=== PATIENT | male | born 1950 | race Caucasian/White ===

== ENCOUNTER 2017-05-09 10:48 | Inpatient (IN) | payer OTHER ==
--- NOTE | 2017-05-09 11:10 | ED ---
General Adult HPI - General Chief complaint: Neuro Symptoms/Deficit Stated complaint: Poss Stroke Time Seen by Provider: 05/09/17 10:58 Source: patient, family, RN notes reviewed Mode of arrival: wheelchair Limitations: no limitations - History of Present Illness Initial comments: Patient is a pleasant 66-year-old male presenting to the emergency department with concern for stroke. Majority of history is taken from the . Patient was fine when he went to bed last night. Patient woke up this morning with slurred speech and confusion. Patient did not check his blood sugar yet today as they do not have the equipment. Patient did not know his address. Symptoms have mostly persistent. Patient states he does feel fine and has no complaints. No headache. No weakness. No history of similar symptoms previously. - Related Data Home Medications Medication Instructions Recorded Confirmed Insulin Aspart [NovoLOG] 15 unit SQ AC-TID 05/09/17 05/09/17 Insulin Glargine,Hum.rec.anlog 30 unit SQ HS 05/09/17 05/09/17 [Lantus Solostar] Lisinopril 40 mg PO DAILY 05/09/17 05/09/17 Omeprazole [PriLOSEC] 20 mg PO DAILY 05/09/17 05/09/17 Allergies Allergy/AdvReac Type Severity Reaction Status Date / Time No Known Allergies Allergy Verified 05/09/17 11:38 Review of Systems ROS Statement: Those systems with pertinent positive or pertinent negative responses have been documented in the HPI. ROS Other: All systems not noted in ROS Statement are negative. Constitutional: Denies: fever Eyes: Denies: eye pain ENT: Denies: ear pain Respiratory: Denies: cough Cardiovascular: Denies: chest pain Endocrine: Denies: fatigue Gastrointestinal: Denies: abdominal pain Genitourinary: Denies: urgency Musculoskeletal: Denies: back pain Skin: Denies: rash Neurological: Reports: confusion. Denies: headache, weakness Past Medical History Past Medical History: Diabetes Mellitus, GERD/Reflux, Hyperlipidemia, Hypertension History of Any Multi-Drug Resistant Organisms: None Reported Past Surgical History: No Surgical Hx Reported Past Psychological History: No Psychological Hx Reported Smoking Status: Current every day smoker Past Alcohol Use History: None Reported Past Drug Use History: None Reported General Exam Limitations: no limitations General appearance: alert, in no apparent distress Head exam: Present: atraumatic, normocephalic Eye exam: Present: normal appearance, PERRL, EOMI. Absent: nystagmus ENT exam: Present: normal oropharynx Neck exam: Present: normal inspection Respiratory exam: Present: normal lung sounds bilaterally Cardiovascular Exam: Present: regular rate, normal rhythm GI/Abdominal exam: Present: soft. Absent: tenderness Extremities exam: Present: normal inspection Neurological exam: Present: alert, CN II-XII intact. Absent: motor sensory deficit Expanded Neurological exam: Present: protecting the airway, other (Mild slurred speech) Patient oriented to: Present: person, time. Absent: place Cranial nerves: EOM's Intact: Normal, Facial Sensation: Normal Cerebellar function: Finger to Nose: Normal Sensory exam: Upper Extremity Light Touch: Normal, Lower Extremity Light Touch: Normal Motor strength exam: RUE: 5, LUE: 5, RLE: 5, LLE: 5 Eye Response: (4) open spontaneously Motor Response: (6) obeys commands Verbal Response: (5) oriented Psychiatric exam: Present: normal affect, normal mood Skin exam: Present: normal color Course Vital Signs 05/09/17 05/09/17 05/09/17 10:54 12:07 13:02 Temperature 97.8 F 98.5 F Pulse Rate 69 72 79 Respiratory 20 18 18 Rate Blood Pressure 159/74 143/84 147/71 O2 Sat by Pulse 96 96 97 Oximetry 05/09/17 13:24 Temperature 16 F L Pulse Rate 63 Respiratory 16 Rate Blood Pressure 125/75 O2 Sat by Pulse 96 Oximetry EKG Findings - EKG Comments: EKG Findings:: Sinus rhythm at 69. AL 150. QRS 92. QT 428. QTC 453. Left axis. Normal QRS. Normal ST-T. Medical Decision Making - Medical Decision Making Patient reevaluated. Patient and family updated on results and plan. Ammonia level be added. Patient will need to be evaluated for possible portal vein thrombosis and possible anticoagulation. Patient will also need to be seen by neurology. Case discussed with practitioner Cris, who will admit for Dr. jackson, covering for hospital call. - Lab Data Result diagrams: 05/09/17 11:25 05/09/17 11:25 Lab Results 05/09/17 05/09/17 05/09/17 Range/Units 11:09 11:25 11:25 WBC 2.9 L (3.8-10.6) k/uL RBC 4.05 L (4.30-5.90) m/uL Hgb 12.7 L (13.0-17.5) gm/dL Hct 35.8 L (39.0-53.0) % MCV 88.4 (80.0-100.0) fL MCH 31.3 (25.0-35.0) pg MCHC 35.4 (31.0-37.0) g/dL RDW 14.9 (11.5-15.5) % Plt Count 42 L* (150-450) k/uL Neutrophils % 74 % Lymphocytes % 11 % Monocytes % 7 % Eosinophils % 4 % Basophils % 0 % Neutrophils # 2.2 (1.3-7.7) k/uL Lymphocytes # 0.3 L (1.0-4.8) k/uL Monocytes # 0.2 (0-1.0) k/uL Eosinophils # 0.1 (0-0.7) k/uL Basophils # 0.0 (0-0.2) k/uL Poikilocytosis (manual Present Anisocytosis (manual) Present PT (9.0-12.0) sec INR (<1.1) APTT (22.0-30.0) sec Sodium (137-145) mmol/L Potassium (3.5-5.1) mmol/L Chloride (98-107) mmol/L Carbon Dioxide (22-30) mmol/L Anion Gap mmol/L BUN (9-20) mg/dL Creatinine (0.66-1.25) mg/dL Est GFR (MDRD) Af Amer (>60 ml/min/1.73 sqM) Est GFR (MDRD) Non-Af (>60 ml/min/1.73 sqM) Glucose (74-99) mg/dL POC Glucose (mg/dL) 141 H (75-99) mg/dL POC Glu Precise Winder ID McDaid, Princess Calcium (8.4-10.2) mg/dL Total Bilirubin (0.2-1.3) mg/dL AST (17-59) U/L ALT (21-72) U/L Alkaline Phosphatase (38-126) U/L Total Creatine Kinase 108 (55-170) U/L CK-MB (CK-2) 1.5 (0.0-2.4) ng/mL CK-MB (CK-2) Rel Index 1.4 Troponin I <0.012 (0.000-0.034) ng/mL Total Protein (6.3-8.2) g/dL Albumin (3.5-5.0) g/dL 05/09/17 05/09/17 Range/Units 11:25 11:25 WBC (3.8-10.6) k/uL RBC (4.30-5.90) m/uL Hgb (13.0-17.5) gm/dL Hct (39.0-53.0) % MCV (80.0-100.0) fL MCH (25.0-35.0) pg MCHC (31.0-37.0) g/dL RDW (11.5-15.5) % Plt Count (150-450) k/uL Neutrophils % % Lymphocytes % % Monocytes % % Eosinophils % % Basophils % % Neutrophils # (1.3-7.7) k/uL Lymphocytes # (1.0-4.8) k/uL Monocytes # (0-1.0) k/uL Eosinophils # (0-0.7) k/uL Basophils # (0-0.2) k/uL Poikilocytosis (manual Anisocytosis (manual) PT 12.5 H (9.0-12.0) sec INR 1.3 (<1.1) APTT 25.0 (22.0-30.0) sec Sodium 141 (137-145) mmol/L Potassium 4.2 (3.5-5.1) mmol/L Chloride 110 H (98-107) mmol/L Carbon Dioxide 21 L (22-30) mmol/L Anion Gap 10 mmol/L BUN 15 (9-20) mg/dL Creatinine 0.68 (0.66-1.25) mg/dL Est GFR (MDRD) Af Amer >60 (>60 ml/min/1.73 sqM) Est GFR (MDRD) Non-Af >60 (>60 ml/min/1.73 sqM) Glucose 136 H (74-99) mg/dL POC Glucose (mg/dL) (75-99) mg/dL POC Glu Precise Winder ID Calcium 9.2 (8.4-10.2) mg/dL Total Bilirubin 1.7 H (0.2-1.3) mg/dL AST 37 (17-59) U/L ALT 38 (21-72) U/L Alkaline Phosphatase 69 (38-126) U/L Total Creatine Kinase (55-170) U/L CK-MB (CK-2) (0.0-2.4) ng/mL CK-MB (CK-2) Rel Index Troponin I (0.000-0.034) ng/mL Total Protein 7.1 (6.3-8.2) g/dL Albumin 4.0 (3.5-5.0) g/dL - Radiology Data Radiology results: report reviewed (Computed tomography scan of the thoracic and abdominal aorta shows cirrhosis and portal hypertension, possible portal vein thrombosis. Indeterminate liver lesions. Computed tomography scan of the brain shows atrophy and white matter changes.), image reviewed (Two-view chest x -ray shows hilar and suprahilar and retrocardiac prominences. CT recommended.) Disposition Clinical Impression: Transient cerebral ischemia, Portal vein thrombosis Disposition: ADMITTED IP TO THIS HOSP Referrals: Nonstaff,Physician [Primary Care Provider] - 1-2 days Decision Time: 14:14
[2017-05-09 11:12] LABS: Glucose,Whole Blood 141 mg/dL (75-99)
[2017-05-09] MEDS ORDERED: SODIUM CHLORIDE 0.9% 1,000 ML IV STA (11:14)
[2017-05-09 11:52] LABS: ALT 38 U/L (21-72); AST 37 U/L (17-59); Alkaline Phosphatase 69 U/L (38-126); Anion Gap 10 mmol/L; Blood Urea Nitrogen 15 mg/dL (9-20); Calcium 9.2 mg/dL (8.4-10.2); Carbon Dioxide 21 mmol/L (22-30); Chloride 110 mmol/L (98-107); Glucose 136 mg/dL (74-99); Non-African American GFR(MDRD) >60 (>60 ml/min/1.73 sqM); Potassium 4.2 mmol/L (3.5-5.1); Sodium 141 mmol/L (137-145); Total Bilirubin 1.7 mg/dL (0.2-1.3); Total Protein 7.1 g/dL (6.3-8.2)
--- NOTE | 2017-05-09 11:52 | XR ---
EXAMINATION TYPE: XR chest 2V DATE OF EXAM: 05/09/2017 COMPARISON: NONE TECHNIQUE: PA and lateral views submitted. HISTORY: Altered mental status FINDINGS: The lungs are clear and there is no pneumothorax, pleural effusion, or focal pneumonia. There is li mited assessment of the lateral view due to motion artifact. Degenerative changes spine seen. There is prominence of the right suprahilar region and along the left cardiac silhouette. Could relat e to aortic aneurysm, mass or ventricular aneurysm. Case discussed with ER physician CT chest recomme nded. IMPRESSION: 1. Hilar and suprahilar and retrocardiac prominence as discussed above. Differential diagnosis would include aortic or ventricular aneurysm. Mass not excluded CT chest recommended.
[2017-05-09 11:59] LABS: Basophils % (A) 0 %; CH 31.3; CHCM 35.6; Eosinophils # (A) 0.1 k/uL (0-0.7); Eosinophils % (A) 4 %; HCT 35.8 % (39.0-53.0); HDW 3.19; HGB 12.7 gm/dL (13.0-17.5); Luc # (Auto) 0.13; Luc % (Auto) 5; Lymphocytes # (A) 0.3 k/uL (1.0-4.8); Lymphocytes % (A) 11 %; MCH 31.3 pg (25.0-35.0); MCHC 35.4 g/dL (31.0-37.0); MCV 88.4 fL (80.0-100.0); Mean Platelet Volume 9.5; Monocytes # (A) 0.2 k/uL (0-1.0); Monocytes % (A) 7 %; Neutrophils # (A) 2.2 k/uL (1.3-7.7); Neutrophils % (A) 74 %; RBC 4.05 m/uL (4.30-5.90); RDW 14.9 % (11.5-15.5); WBC 2.9 k/uL (3.8-10.6); WBC (Perox) 2.99
--- NOTE | 2017-05-09 12:02 | CT ---
EXAMINATION TYPE: CT brain wo con DATE OF EXAM: 05/09/2017 COMPARISON: NONE INDICATION: Patient complains of feeling "woozy." Neurological deficits. DLP: 809.2 mGycm, Automated exposure control for dose reduction was used. CONTRAST: None CT of the brain is performed utilizing 3 mm thick sections through the posterior fossa and 3 mm thick sections through the remaining calvarium. Study is performed within 24 hours of arrival to the hosp ital. No abnormal hyperdensity is present to suggest an acute intracranial hemorrhage. No mass lesion is evident. No acute infarcts are evident. Some mild periventricular white matter hypodensity is present, likely on the basis of chronic white matter ischemic changes. Ventricles and sulci are appropriate for the patient age. There is mild prominence of the extra-axia l space greater at the frontal region which can be related to some atrophy Paranasal sinuses and mastoid air cells within the [id number] are clear. IMPRESSIONS: 1. Mild atrophy with some mild periventricular white matter ischemic changes.
[2017-05-09 12:10] LABS: Creatine Kinase 108 U/L (55-170)
[2017-05-09 12:11] LABS: INR 1.3 (<1.1); Prothrombin Time 12.5 sec (9.0-12.0)
[2017-05-09] MEDS ORDERED: RX INFO: IV CONTRAST WAS GIVEN 1 EACH MISC MISCELLANE PRN (12:11)
[2017-05-09 12:23] LABS: Creatine Kinase MB 1.5 ng/mL (0.0-2.4); Troponin I <0.012 ng/mL (0.000-0.034)
--- NOTE | 2017-05-09 13:45 | CT ---
CT angiogram of the thoracic and abdominal aorta HISTORY: Pain Helical acquisition obtained through the aorta are dynamic administration of 100 cc Omni 350 IV. Thre e-dimensional reconstructions performed on an alternate workstation. Exam was performed both pre and post intravenous contrast administration. The aorta shows normal caliber, there is no evident aneurysm or dissection. The superior aortic branc h vessels, superior mesenteric artery, celiac axis, inferior mesenteric artery, renal arteries, commo n iliac, internal and external iliac arteries, common femoral, proximal deep and superficial femoral arteries are patent. There is a large hiatal hernia, small bowel loops thought to be present within the chest, this could be confirmed with oral contrast administration. Coronary artery calcifications are present. Low dense foci are scattered within the liver are present within the dome measuring approximately 3.4 and 2.1 cm respectively. The liver appears somewhat nodular. The spleen is enlarged. There is low density present of the super ior mesenteric vein especially at the splenoportal confluence suggesting portal vein thrombosis. Smal l bowel loops and cecum show probable wall thickening. Some associated inflammatory changes are suspe cted within the mesenteric fat. There is minimal ascites. Dependent high attenuation within the gallb ladder compatible with stones. There is gastric wall thickening. Anterior abdominal wall hernia is noted at the umbilical location, there is associated varices. Right inguinal hernia also contains small bowel loops, no definite bowel obstruction. No evident adenopath y. Urinary bladder shows thickened wall, there may be chronic bladder outlet obstruction, prostate sh ows associated calcifications. IMPRESSION: Findings suggest cirrhosis and portal hypertension, possible portal vein thrombosis. Inde terminate liver lesions. Possible hiatal hernia containing small bowel loops as described. Coronary a rtery disease. No evident abdominal aortic aneurysm or dissection. Additional hernias. Cholelithiasis . Small and large bowel wall thickening may be due to portal vein thrombosis. Case discussed with Dr. Gonzalez at time of interpretation.
--- NOTE | 2017-05-09 15:39 | US ---
EXAMINATION TYPE: US carotid duplex BILAT DATE OF EXAM: 05/09/2017 COMPARISON: NONE CLINICAL HISTORY: Stenosis. Dizziness, exam done portable in ER EXAM MEASUREMENTS: RIGHT: Peak Systolic Velocity (PSV) cm/sec ----- Right CCA: 77.6 ----- Right ICA: 74.0 ----- Right ECA: 143.5 ICA/CCA ratio: 1.0 RIGHT: End Diastole cm/sec ----- Right CCA: 17.1 ----- Right ICA: 27.0 ----- Right ECA: 17.8 LEFT: Peak Systolic Velocity (PSV) cm/sec ----- Left CCA: 96.2 ----- Left ICA: 63.7 ----- Left ECA: 69.9 ICA/CCA ratio: 0.7 LEFT: End Diastole cm/sec ----- Left CCA: 19.6 ----- Left ICA: 21.5 ----- Left ECA: 9.0 VERTEBRALS (direction of flow): Right Vertebral: Antegrade Left Vertebral: Antegrade Bilateral intimal thickening, minimal plaque bilateral bulb, elevated velocity: right mid ECA, no sig nificant stenosis IMPRESSION: 1. Intimal thickening and mild plaque bilaterally with no significant hemodynamic stenosis.
[2017-05-09] MEDS: SODIUM CHLORIDE 0.9% 1,000 ML IV SCH ×2 (17:10→21:57)
[2017-05-09 21:09] LABS: Glucose,Whole Blood 151 mg/dL (75-99)
[2017-05-09] MEDS: INSULIN GLARGINE 100 UNIT/ML 10 ML VIAL SQ SCH (21:30)
--- NOTE | 2017-05-09 23:07 | CONS ---
DATE OF CONSULTATION: 05/09/2017 CHIEF COMPLAINT: Altered mental status. HISTORY OF PRESENT ILLNESS: Mr. Fowler is a pleasant 66-year-old male who is being evaluated by the neurology service per the request of Dr. Nowak for altered mental status. The patient was brought into [facility] emergency room after his noticed that he was somewhat confused and quite drowsy. She also noticed some slurred speech. In the emergency room, a CT scan of the brain was done, which showed no acute intracranial abnormalities. He did have generalized atrophy and small vessel ischemic changes. His carotid Doppler showed no hemodynamically significant stenosis. A chest x-ray was done, which showed abnormal calcification and a CT scan of the chest was recommended. A CT scan of the chest was done, which showed evidence of portal vein thrombosis. The patient does have history of liver cirrhosis with a previous history of alcohol abuse. His serum ammonia level was elevated at 71. His CBC showed leukopenia at 2.9 and thrombocytopenia at 42,000. His comprehensive metabolic profile and cardiac enzymes were normal. At the time of my evaluation, the patient is lying in his bed and appears to be in no acute distress. His is at bedside and she reports moderate improvement in his speech and mild improvement in his mental status. The patient denies any lateralizing numbness or weakness. PAST MEDICAL HISTORY: Diabetes, gastroesophageal reflux disease, dyslipidemia, hypertension, history of hepatic cirrhosis. SOCIAL HISTORY: The patient is a current every day smoker. He does have history of alcohol abuse in the past. He denies any drug use. FAMILY HISTORY: Noncontributory. HOME MEDICATIONS: Reviewed in the chart. ALLERGIES: No known drug allergies. REVIEW OF SYSTEMS: CONSTITUTIONAL: Negative. EYES: Negative. ENT: Negative. CARDIOVASCULAR: Negative. RESPIRATORY: Negative. GASTROINTESTINAL: As mentioned above. NEUROLOGICAL: As mentioned above. GENITOURINARY: Negative. PSYCHIATRIC: Negative. Dermatological: Negative. MUSCULOSKELETAL: Negative. PHYSICAL EXAM: Vital signs show a temperature of 97.1, pulse 64, respirations 18, blood pressure 139/80. GENERAL APPEARANCE: The patient is a well-developed male who appears to be in no acute distress. HEENT: Normocephalic, atraumatic, no facial asymmetry is seen. Extraocular muscles are intact. Neck is supple with no masses felt. CARDIOVASCULAR: Regular rate and rhythm. ABDOMEN: Nontender, nondistended. EXTREMITIES: No edema or clubbing. NEUROLOGICAL EXAM: The patient is awake, and oriented x3. Speech and language are normal. Strength is full in all 4 extremities. Sensory exam was normal to light touch in all 4 extremities. No facial asymmetry is noticed on cranial nerve testing. IMPRESSION: 1. Altered mental status. 2. Acute metabolic encephalopathy. 3. Elevated ammonia level. 4. Dysarthria. 5. Thrombocytopenia. 6. Possible portal vein thrombosis. RECOMMENDATIONS: The patient's mental status change and dysarthria are likely due to his elevated ammonia level. This likely caused an acute metabolic encephalopathy causing him to be drowsy and confused and dysarthric. His symptoms are slowly improving. His CT scan of the thorax shows evidence of portal vein thrombosis. Gastroenterology has been consulted. From a neurology standpoint, an EEG will be ordered. I do recommend close monitoring of his platelet count as he does have significant thrombocytopenia. Continue neuro checks. I did review his CT scan of the brain, which showed no acute abnormalities and he was reassured from that standpoint. I doubt any ischemic stroke etiology at this time. I will continue to follow with you. Further recommendations to follow. Thank you for allowing me to participate in the care of your patient. If you have any questions, please feel free to contact me.
[2017-05-10 06:07] LABS: Glucose,Whole Blood 117 mg/dL (75-99)
[2017-05-10 06:52] LABS: Anion Gap 7 mmol/L; Blood Urea Nitrogen 14 mg/dL (9-20); Calcium 8.7 mg/dL (8.4-10.2); Carbon Dioxide 21 mmol/L (22-30); Chloride 111 mmol/L (98-107); Cholesterol 168 mg/dL (<200); Glucose 107 mg/dL (74-99); HDL Cholesterol 47 mg/dL (40-60); Non-African American GFR(MDRD) >60 (>60 ml/min/1.73 sqM); Potassium 3.8 mmol/L (3.5-5.1); Sodium 139 mmol/L (137-145); Triglycerides 174 mg/dL (<150)
[2017-05-10 07:11] LABS: Basophils % (A) 0 %; CH 30.8; Eosinophils # (A) 0.1 k/uL (0-0.7); Eosinophils % (A) 5 %; HCT 34.4 % (39.0-53.0); HDW 3.08; HGB 11.6 gm/dL (13.0-17.5); Luc # (Auto) 0.11; Luc % (Auto) 5; Lymphocytes # (A) 0.4 k/uL (1.0-4.8); Lymphocytes % (A) 15 %; MCH 30.6 pg (25.0-35.0); MCHC 33.7 g/dL (31.0-37.0); MCV 90.9 fL (80.0-100.0); Mean Platelet Volume 8.1; Monocytes # (A) 0.2 k/uL (0-1.0); Monocytes % (A) 8 %; Neutrophils # (A) 1.6 k/uL (1.3-7.7); Neutrophils % (A) 67 %; RBC 3.78 m/uL (4.30-5.90); RDW 14.8 % (11.5-15.5); WBC 2.4 k/uL (3.8-10.6); WBC (Perox) 2.64
--- NOTE | 2017-05-10 07:45 | HP ---
DATE OF ADMISSION: 05/09/2017 PRESENTING COMPLAINT: Acute confusion. HISTORY OF PRESENTING COMPLAINT: This is a 66-year-old patient who was visiting here with his . Chronic stable medical conditions include diabetes, GERD, hyperlipidemia, hypertension. Patient also got known esophageal varices. Stopped drinking excessive alcohol in 2006. This morning patient got up, he was somewhat confused, acting weird, slow to walk, slightly slurred speech, just not himself. CT scan in the ER did not show any stroke. Initial impression that patient may have had ( ). The patient denies any weakness on a particular side. No numbness. Per the , the patient is looking better right now. REVIEW OF SYSTEMS: CONSTITUTIONAL: Tired. HEENT: None. RESPIRATORY: None. CARDIOVASCULAR: None. GASTROINTESTINAL: Heartburn. GENITOURINARY: None. MUSCULOSKELETAL: None. DERMATOLOGICAL: None. HEMATOLOGICAL: None. LYMPHATIC: None. PSYCHIATRY: None. NEUROLOGICAL: As above. PAST HISTORY: Diabetes, GERD, hyperlipidemia, hypertension, esophageal varices, alcoholism. PAST SURGICAL HISTORY: Procedure of esophageal varices. SOCIAL HISTORY: The patient works at [employer]. Stopped drinking excessive alcohol in 2006. Did smoke cigars in the past. . FAMILY HISTORY: Stroke, hypertension, myocardial infarction. HOME MEDICATIONS: 1. NovoLog 15 units a.c. t.i.d. 2. Prilosec 20 mg p.o. daily. 3. Lisinopril 40 mg p.o. daily. 4. Lantus 30 units subcu q.h.s. ALLERGIES: None. ON EXAMINATION: VITAL SIGNS ON PRESENTATION: Temperature 97.8, pulse 69, respiration 20, blood pressure 159/74, pulse ox 96% on room air. GENERAL APPEARANCE: Well built, BMI of 33.5, sitting up, not in distress. EYES: Pupils equal. Conjunctivae normal. HEENT: External appearance of nose and ears normal. Oral cavity normal. NECK: JVD not raised. Mass not palpable. RESPIRATORY: Effort normal. Lungs are clear. CARDIOVASCULAR: First and second sounds normal. Minimal edema. ABDOMEN: Soft, nontender. Liver and spleen not palpable. LYMPHATIC: No lymph node palpable in neck or axillae. PSYCHIATRY: Patient is answering questions. No ( ). Minimal tremors if any. INVESTIGATIONS: White count 2.9, hemoglobin 12.7, platelets 42. Potassium 4.2, BUN and creatinine are normal, Accu-Cheks are noted. Troponin less than 0.012. Serum alcohol less than 10. Serum ammonia 71. Patient's CT angio, thoracic abdominal aorta showing cirrhosis, portal hypertension, possible portal vein thrombosis, indeterminate liver lesions, possible hiatal hernia. No evidence of dissection; cholelithiasis. CT scan of the brain unremarkable. ASSESSMENT: 1. This is a patient with acute confusion, slurring of speech. This may well be a hepatic encephalopathy. At the same time, transient ischemic attack cannot be ruled out. Patient has multiple risk factors. 2. Alcoholic cirrhosis with portal hypertension with possible portal vein thrombosis. 3. Diabetes mellitus type 2, chronically on insulin. 4. Gastroesophageal reflux disease. 5. Hyperlipidemia. 6. Essential hypertension. 7. Esophageal varices. PLAN: Home medications are resumed. Both GI and Neurology were consulted. I am reluctant to give any aspirin given history esophageal varices. Patient will also be put on lactulose to titrate to have 2 or 3 bowel movements a day. Because of low platelet count, Lovenox will be given. Care was discussed with the patient and at the bedside. The patient will be closely monitored. Neuro checks. Like I said aspirin will be held.
[2017-05-10 08:57] LABS: Hepatitis B Surface Ag Index 0.06
[2017-05-10] MEDS ORDERED: LACTULOSE 20 GM/30 ML CUP PO SCH (09:00)
[2017-05-10] MEDS ORDERED: ENOXAPARIN 40 MG/0.4 ML SYRINGE SQ SCH (09:00)
[2017-05-10 09:02] LABS: Hepatitis B Core IgM Index 0.01
[2017-05-10 09:14] LABS: Hepatitis C Virus IgG Ab Negative (Negative); Hepatitis C Virus IgG Index 0.05
[2017-05-10] MEDS ORDERED: RX INFO: IV CONTRAST WAS GIVEN 1 EACH MISC MISCELLANE PRN (09:57)
[2017-05-10 10:09] LABS: Reticulocyte % 2.7 % (0.5-2.0)
[2017-05-10] MEDS: INSULIN LISPRO (humaLOG) 300 UNIT/3 ML VIAL SQ SCH ×3 (10:24→17:51)
--- NOTE | 2017-05-10 10:51 | ECHOF ---
Referral Reason:Thrombus MEASUREMENTS -------- HEIGHT: 180.3 cm WEIGHT: 108.9 kg BP: 125/75 RVIDd: 2.8 cm (< 3.3) IVSd: 1.3 cm (0.6 - 1.1) LVIDd: 5.5 cm (3.9 - 5.3) LVPWd: 1.3 cm (0.6 - 1.1) IVSs: 2.1 cm LVIDs: 2.9 cm LVPWs: 2.1 cm LAESV Index (A-L): 27.56 ml/m Ao Diam: 3.2 cm (2.0 - 3.7) AV Cusp: 2.2 cm (1.5 - 2.6) LA Diam: 3.0 cm (2.7 - 3.8) MV EXCURSION: 19.436 mm (> 18.000) MV EF SLOPE: 72 mm/s (70 - 150) EPSS: 0.8 cm MV E Fer: 1.01 m/s MV DecT: 371 ms MV A Fer: 1.20 m/s MV E/A Ratio: 0.85 AR PHT: 1375 ms RAP: 5.00 mmHg RVSP: 25.24 mmHg FINDINGS -------- Sinus rhythm. This was a technically adequate study. There is mild concentric left ventricular hypertrophy. Overall left ventricular systolic function is normal with, an EF between 60 - 65 %. The right ventricle is normal in size and function. Normal LA size by volume 22+/-6 ml/m2. The right atrium is normal in size. Aortic valve is trileaflet and is mildly thickened. Trace amount of aortic regurgitation. The aortic pressure half-time by doppler is 1375ms. There is no evidence of aortic stenosis. The mitral valve leaflets are mildly thickened. Mild mitral annular calcification present. There is trace to mild mitral regurgitation. Trace tricuspid regurgitation present. There is no evidence of pulmonary hypertension. The right ventricular systolic pressure, as measured by Doppler, is 25.24mmHg. Trace/mild (physiologic) pulmonic regurgitation. The aortic root size is normal. Normal inferior vena cava with normal inspiratory collapse consistent with estimated right atrial pressure of 5 mmHg. The pericardium is normal. There is no pericardial effusion. Small Pleural Effusion. CONCLUSIONS -------- 1. Sinus rhythm. 2. Mild mitral annular calcification present. 3. There is trace to mild mitral regurgitation. 4. Trace tricuspid regurgitation present. 5. There is no evidence of pulmonary hypertension. 6. The right ventricular systolic pressure, as measured by Doppler, is 25.24mmHg. 7. Trace/mild (physiologic) pulmonic regurgitation. 8. The aortic root size is normal. 9. There is no pericardial effusion. 10. Small Pleural Effusion. 11. There is mild concentric left ventricular hypertrophy. 12. Overall left ventricular systolic function is normal with, an EF between 60 - 65 %. 13. Normal LA size by volume 22+/-6 ml/m2. 14. Aortic valve is trileaflet and is mildly thickened. 15. Trace amount of aortic regurgitation. 16. The aortic pressure half-time by doppler is 1375ms. 17. There is no evidence of aortic stenosis. 18. The mitral valve leaflets are mildly thickened. RIVETING MACHINE OPERATOR: Mat Betancourt RDCS
[2017-05-10] MEDS ORDERED: IOHEXOL 350 MG/ML 25 ML BOTTLE (ORAL USE) PO ONE ×2 (11:11→13:10)
--- NOTE | 2017-05-10 11:18 | P.CONS ---
History of Present Illness - Reason for Consult Consult date: 05/10/17 Portal vein thrombosis Requesting physician: Jacoby Nowak - History of Present Illness 66-year-old gentleman followed by a emu farmer in the [facility] with a PMH diabetes, hyperlipidemia, obesity, hypertension, GERD, EtOH abuse (quit 2006), alcohol liver disease, known cirrhosis for about 12 years, esophageal varices without bleeding, and nicotine cigarette dependency presents with altered mental status changes. CT brain mild atrophy. CT angiograms thoracic and abdominal aorta reported large hiatal hernia with small bowel loops thought to be present within the chest. Indeterminate liver lesions ; low dense foci scattered within the liver within the dome measuring 3.4 in 2.1 cm respectively. Nodular-appearing liver. Enlarged spleen. Low density present of the superior mesenteric vein at the splenoportal confluence suggesting portal vein thrombosis. Minimal ascites. Cholelithiasis. Anterior abdominal umbilical wall hernia with associated varices. White count 2.9. Hemoglobin 12.7. Platelet 42,000. MCV 88. INR 1.3. total bilirubin 1.7. AST 37. ALT 38. Alkaline phosphatase 69. Ammonia 71. Serum alcohol less than 10. Patient used to drink 3-4 days weekly for more than 10 years a mixture of beer and liquor quit about 10 years ago. Denies weight loss, changes in appetite, fever, chills, hematemesis, hematochezia, or melena. Last colonoscopy about 2 years ago to his memory normal. Last EGD more than 5 years ago again to his memory unremarkable. Review of Systems Constitutional: Denies fever, chills, sweats, weight gain, or loss. HEENT: Negative for migraines, blurred vision or loss, earaches, drainage, tinnitus, oral mucosal lesions, dysphagia, or odynophagia. Cataract. Cardiac: hypertension. Hyperlipidemia.Negative for chest pain, arrhythmias, or palpitation. Respiratory: Negative for shortness of breath, hemoptysis, cough, or sputum production. Gastrointestinal: See HPI for pertinent findings. Genitourinary: Negative for hematuria, urgency, frequency, polyuria, dysuria, or penile discharge. Musculoskeletal: Negative for muscle aches, swelling, arthritis, and arthralgias. Neurologic: Negative for stroke or TIA. Endocrine: diabetes mellitus.Negative for thyroid problems. Skin: Negative for rash or itching. Psychiatric: Negative history for depression and anxiety All systems: negative (see HPI) Past Medical History Past Medical History: Diabetes Mellitus, GERD/Reflux, Hyperlipidemia, Hypertension Additional Past Medical History / Comment(s): "beginnings of cataracts,past esophageal varices(past heavy etoh use,quit 2006- stated pt ahs some liver damage from the etoh),lower abd hernia,"hands shake", "low rbc" History of Any Multi-Drug Resistant Organisms: None Reported Past Surgical History: No Surgical Hx Reported Additional Past Surgical History / Comment(s): past procedure for esophageal varicies Additional Past Anesthesia/Blood Transfusion Reaction / Comm: blood transfusion- no reation, clausterphobic. Past Psychological History: No Psychological Hx Reported Additional Psychological History / Comment(s): pt lives with his in 3rd floor apt.has elevator. no pets. pt is independant when up. no outside services , no medical equipment. Smoking Status: Current every day smoker Past Alcohol Use History: Heavy Additional Past Alcohol Use History / Comment(s): started smoking in his early 20's (not sure exactly) only smokes cigars-1 per day. past heavy etoh use-quit 2006 Past Drug Use History: None Reported - Past Family History Mother Family Medical History: CVA/TIA, Hypertension, Myocardial Infarction (HI) Father Family Medical History: Dementia Medications and Allergies Home Medications Medication Instructions Recorded Confirmed Type Insulin Aspart [NovoLOG] 15 unit SQ AC-TID 05/09/17 05/09/17 History Insulin Glargine,Hum.rec.anlog 30 unit SQ HS 05/09/17 05/09/17 History [Lantus Solostar] Lisinopril 40 mg PO DAILY 05/09/17 05/09/17 History Omeprazole [PriLOSEC] 20 mg PO DAILY 05/09/17 05/09/17 History Allergies Allergy/AdvReac Type Severity Reaction Status Date / Time No Known Allergies Allergy Verified 05/09/17 11:38 Physical Exam Vitals: Vital Signs Temp Pulse Pulse Pulse Resp BP BP 05/10/17 04:00 98.3 F 62 16 124/66 05/10/17 00:00 66 16 141/75 05/09/17 20:00 97.2 F L 61 16 135/84 05/09/17 16:45 97.1 F L 64 18 139/80 05/09/17 14:46 97.7 F 70 18 153/68 05/09/17 13:24 16 F L 63 16 125/75 05/09/17 13:02 98.5 F 79 18 147/71 05/09/17 12:07 72 18 143/84 05/09/17 10:54 97.8 F 69 20 159/74 Pulse Ox 05/10/17 04:00 96 05/10/17 00:00 95 05/09/17 20:00 96 05/09/17 16:45 94 L 05/09/17 14:46 05/09/17 13:24 96 05/09/17 13:02 97 05/09/17 12:07 96 05/09/17 10:54 96 Intake and Output 05/09/17 05/10/17 05/10/17 22:59 06:59 14:59 Intake Total 236 700 Balance 236 700 Intake: IV 700 Sodium Chloride 0.9% 1, 700 000 ml @ 100 mls/hr IV . Q10H [facility] Rx#:[id number] Oral 236 Other: # Voids 1 1 Weight 107.5 kg General appearance: The patient is alert, oriented, in no acute distress. HET: Head is normocephalic and atraumatic. Pupils are equal and reactive. Oropharynx is clear without lesions. Facial telangiectasias. Neck: Supple without lymphadenopathy. Trachea midline. Heart: S1 S2. Regular rate and rhythm. Lungs: No crackles or wheezes are heard. Abdomen: Soft, nontender, reducible umbilical hernia, nondistended with bowel sounds. No appreciable ascites. No peritoneal signs. No palpable organomegaly or masses. Extremities: Normal skin color and turgor. No cyanosis, rash, ulceration, clubbing, or edema. Radial and pedal pulses are 2/4 bilaterally. Neurological: No focal deficits. Strength and sensation are grossly intact. Results CBC & Chem 7: 05/11/17 07:21 05/11/17 07:21 Labs: Abnormal Lab Results - Last 24 Hours (Table) 05/09/17 05/09/17 05/09/17 Range/Units 11:09 11:25 11:25 WBC 2.9 L (3.8-10.6) k/uL RBC 4.05 L (4.30-5.90) m/uL Hgb 12.7 L (13.0-17.5) gm/dL Hct 35.8 L (39.0-53.0) % Plt Count 42 L* (150-450) k/uL Lymphocytes # 0.3 L (1.0-4.8) k/uL PT (9.0-12.0) sec Chloride 110 H (98-107) mmol/L Carbon Dioxide 21 L (22-30) mmol/L Glucose 136 H (74-99) mg/dL POC Glucose (mg/dL) 141 H (75-99) mg/dL Total Bilirubin 1.7 H (0.2-1.3) mg/dL Ammonia (<30) umol/L Triglycerides (<150) mg/dL 05/09/17 05/09/17 05/09/17 Range/Units 11:25 15:31 21:07 WBC (3.8-10.6) k/uL RBC (4.30-5.90) m/uL Hgb (13.0-17.5) gm/dL Hct (39.0-53.0) % Plt Count (150-450) k/uL Lymphocytes # (1.0-4.8) k/uL PT 12.5 H (9.0-12.0) sec Chloride (98-107) mmol/L Carbon Dioxide (22-30) mmol/L Glucose (74-99) mg/dL POC Glucose (mg/dL) 151 H (75-99) mg/dL Total Bilirubin (0.2-1.3) mg/dL Ammonia 71 H (<30) umol/L Triglycerides (<150) mg/dL 05/10/17 05/10/17 Range/Units 06:06 06:21 WBC (3.8-10.6) k/uL RBC (4.30-5.90) m/uL Hgb (13.0-17.5) gm/dL Hct (39.0-53.0) % Plt Count (150-450) k/uL Lymphocytes # (1.0-4.8) k/uL PT (9.0-12.0) sec Chloride 111 H (98-107) mmol/L Carbon Dioxide 21 L (22-30) mmol/L Glucose 107 H (74-99) mg/dL POC Glucose (mg/dL) 117 H (75-99) mg/dL Total Bilirubin (0.2-1.3) mg/dL Ammonia (<30) umol/L Triglycerides 174 H (<150) mg/dL Comments: CT angiogram thoracic aorta reviewed by Dr. Lawson CT Scan - head: report reviewed (Dr. Lawson) Assessment and Plan (1) Hepatic encephalopathy Status: Chronic (2) Altered mental status Status: Resolved (3) Portal vein thrombosis Narrative/Plan: suspected portal vein thrombosis per thoracic/angio CT Status: Chronic (4) H/O ETOH abuse Status: Acute (5) Alcoholic liver disease Narrative/Plan: Suspected Status: Chronic (6) Cirrhosis Narrative/Plan: Suspected remote history of EtOH abuse contributing to cirrhosis alcohol liver disease clinical picture, however, long standing metabolic conditions such as hypertension, hyperlipidemia, diabetes, and obesity could also be contributing factors. Status: Chronic (7) Portal hypertension Status: Chronic (8) Liver lesion Narrative/Plan: indeterminate liver lesions per CT with possible portal vein thrombosis cannot exclude underlying malignancy HCC. Status: Acute (9) Thrombocytopenia Status: Suspected (10) Intra-abdominal varices Status: Chronic (11) Esophageal varices in cirrhosis Status: Chronic Plan: 1. CT imaging reviewed with Dr. Henderson. Possible adenopathy in the chest possible mass, gastric wall thickening. This concern was communicated with flat drier oncologist Dr. Grande. Ultrasound liver with Doppler to assess/ confirmation of portal vein thrombosis. Dr. Grande recommend CT chest abdomen and pelvis with IV contrast for further evaluation. 2. Hepatitis panel and alpha-fetoprotein marker, CEA. Serologic chronic liver disease/autoimmune workup requested. 3. Lactulose 20 g titrate 3-4 bowel movements daily with repeat ammonia daily. 4. Further workup will be based on review of ultrasound and repeat CT findings. Will follow with you. Patient's family has communicated they would like to continue their workup with their local emu farmer in the [place] area. Thank you for this kind referral and the opportunity to participate in the care of your patient. This consultation was discussed with Dr. Lawson. The impression and plan of care have been directed as dictated.
[2017-05-10 11:28] LABS: Glucose,Whole Blood 158 mg/dL (75-99)
[2017-05-10] MEDS: PANTOPRAZOLE 40 MG TABLET PO SCH (11:30)
[2017-05-10] MEDS: LISINOPRIL 20 MG TAB PO SCH (11:30)
[2017-05-10] MEDS ORDERED: LACTULOSE 20 GM/30 ML CUP PO ONE (11:33)
[2017-05-10 11:39] LABS: Iron 78 ug/dL (49-181)
[2017-05-10 11:48] LABS: % Iron Saturation 19.6 % (20-50); Rheumatoid Factor, Qnt <9 IU/mL (<12); Total Iron Binding Capacity 397 ug/dL (261-462)
--- NOTE | 2017-05-10 12:06 | US ---
EXAMINATION TYPE: US PORTAL VEIN DATE OF EXAM: 05/10/2017 COMPARISON: CT CLINICAL HISTORY: assess for portal vein thrombosis. EXAM MEASUREMENTS: Liver Length: 13.1 Gallbladder Wall: 0.4 CBD: 0.2 Right Kidney: 12.3 x 6.2 x 5.5cm ANATOMY: Patient has large abdomen and extensive overlying bowel gas, he is unable to hold his breath well, technically difficult and very limited study. Multiple midline varices. Pancreas: obscured Liver: not visualized in its entirety, appears heterogeneous, anechoic structure seen probable cyst measuring 2.3 x 2.4 x 2.8 Color flow patency within the portal vein: portal v appears thrombosed, study very limited due to above factors Portal Vein Flow: no flow Gallbladder: unable to visualize in its entirety, possible, stones not evident with ultrasound, but not seen well Evidence for sonographic Moreira's sign: No CBD: limited visualization, appears wnl Right Kidney: limited visualization, no hydro or mass identified. Ascites noted? unable to see ascites, but scan very limited IMPRESSION: SONOGRAPHIC FINDINGS CONSISTENT WITH PORTAL VEIN THROMBOSIS.
--- NOTE | 2017-05-10 15:31 | CT ---
EXAMINATION TYPE: CT ChestAbdPelvis w con DATE OF EXAM: 05/10/2017 COMPARISON: CT angiogram May 09, 2017 and portal venous Doppler ultrasound May 10, 2017 HISTORY: Portal Vein Thrombosis CT DLP: 2142.20 mGycm Automated exposure control for dose reduction was used. CONTRAST: CT scan of the chest, abdomen and pelvis is performed with Oral Contrast and with IV Contrast, patien t injected with 100 ml mL of Omnipaque 300. FINDINGS: LUNGS / AIRWAYS: The lungs are grossly clear, there is no concerning parenchymal mass or nodule ident ified. The tracheobronchial tree is patent. PLEURAL SPACES: There is no pleural effusion or pneumothorax seen. MEDIASTINUM: Throughout the middle mediastinum and left hilum are very large-caliber serpentine vesse ls folded upon themselves, consistent with massive varices from the level of the keyon and communica ting through the diaphragm on into the abdomen. Coronary calcifications noted. EPIGASTRIUM: There are massive varices throughout the epigastrium. LIVER/GB: The liver shows marked scalloping, caudate lobe prominence and chronic appearing portal vei n thrombosis, with nonocclusive thrombus extending into the superior mesenteric vein. The hepatic radha ous system is patent. There is are 2 simple appearing hepatic cysts at the dome of the liver in the posterior segment o f the right hepatic lobe, one measuring 2 cm diameter and the other measuring 3 cm diameter. Cholelithiasis incidentally noted. No cholecystitis. Biliary tree otherwise unremarkable. PANCREAS: No significant abnormality is seen. SPLEEN: Marked splenomegaly. ADRENALS: No significant abnormality is seen. KIDNEYS: No significant abnormality is seen. BOWEL: 1. The right colon shows mild but indistinct circumferential mural thickening with edematous reticula tion circumferential to it and this involves irregular thickening of the right lateral conal fascia. Findings are consistent with nonspecific ascending colitis. No pneumatosis or pneumoperitoneum. There is only scant peritoneal fluid in the abdomen and pelvis, nearly physiologic. 2. There is no bowel obstruction or focal mass, but there is a large direct right inguinal hernia con taining several normal-appearing loops of small bowel. VASCULATURE: The abdominal varices are tremendously large in caliber. The inferior vena cava is widel y patent as are the deep pelvic veins. REPRODUCTIVE ORGANS: No gross abnormality seen. LYMPH NODES: No greater than 1 cm abdominal or pelvic lymph nodes are appreciated. OSSEOUS STRUCTURES: No significant abnormality is seen. IMPRESSION: 1. Nonspecific mild/moderate ascending colitis. 2. Massive thoracoabdominal varices throughout the abdomen, mediastinum, and left hilum. 3. Cirrhosis with chronic portal vein thrombosis and splenomegaly. 4. Massive right direct inguinal hernia, with normal-appearing bowel loops and no bowel obstruction. 5. Coronary calcification noted.
--- NOTE | 2017-05-10 16:05 | P.PN ---
Subjective Principal diagnosis: Altered mental status This is a pleasant 66-year-old male continuing be evaluated by the neurology service for altered mental status. His had noticed some confusion and drowsiness. Initial CT in the emergency room showed no acute intracranial abnormalities. There was some generalized atrophy and small vessel ischemic changes. His carotid Doppler showed no hematoma in erratically snug against stenosis. CT of the chest showed portal vein thrombosis. He has a history of liver cirrhosis with past alcohol abuse. His ammonia levels were also elevated. At the time of my exam he is walking around his room, he is eating a sandwich. He is in no acute distress. He and his say he is back to baseline. Objective - Vital Signs Vital signs: Vital Signs Temp 97 F L 05/10/17 10:30 Pulse 63 05/10/17 10:30 Resp 18 05/10/17 10:30 BP 156/92 05/10/17 10:30 Pulse Ox 96 05/10/17 10:30 Intake & Output 05/09/17 05/10/17 05/10/17 18:59 06:59 18:59 Intake Total 236 700 Balance 236 700 Weight 108.862 kg 107.5 kg Intake: IV 700 Sodium Chloride 0.9% 1, 700 000 ml @ 100 mls/hr IV . Q10H [facility] Rx#:[id number] Oral 236 Other: # Voids 1 1 - Constitutional General appearance: Present: cooperative, no acute distress - EENT Eyes: Present: PERRLA. Absent: abnormal pupil, ptosis ENT: Present: hearing grossly normal - Neck Neck: Absent: rigidity - Respiratory Respiratory: negative: prolonged expiration, prolonged inspiration - Cardiovascular Rhythm: regular - Neurologic Neurologic Comment(s): Patient is alert awake and oriented 3. Speech-language are normal. There is no lateralizing weakness. Strength is full in bilateral upper lower extremities. There is no sensory deficit. There is no tremors or seizure-like activity seen. - Labs CBC & Chem 7: 05/10/17 06:31 05/10/17 06:21 Labs: Abnormal Lab Results - Last 24 Hours (Table) 05/09/17 05/09/17 05/10/17 Range/Units 15:31 21:07 06:06 WBC (3.8-10.6) k/uL RBC (4.30-5.90) m/uL Hgb (13.0-17.5) gm/dL Hct (39.0-53.0) % Plt Count (150-450) k/uL Lymphocytes # (1.0-4.8) k/uL Retic Count (0.5-2.0) % Chloride (98-107) mmol/L Carbon Dioxide (22-30) mmol/L Glucose (74-99) mg/dL POC Glucose (mg/dL) 151 H 117 H (75-99) mg/dL % Saturation (20-50) % Ferritin (18-464) ng/mL Ammonia 71 H (<30) umol/L Triglycerides (<150) mg/dL 05/10/17 05/10/17 05/10/17 Range/Units 06:21 06:31 07:49 WBC 2.4 L (3.8-10.6) k/uL RBC 3.78 L (4.30-5.90) m/uL Hgb 11.6 L (13.0-17.5) gm/dL Hct 34.4 L (39.0-53.0) % Plt Count 44 L* (150-450) k/uL Lymphocytes # 0.4 L (1.0-4.8) k/uL Retic Count (0.5-2.0) % Chloride 111 H (98-107) mmol/L Carbon Dioxide 21 L (22-30) mmol/L Glucose 107 H (74-99) mg/dL POC Glucose (mg/dL) (75-99) mg/dL % Saturation (20-50) % Ferritin (18-464) ng/mL Ammonia 53 H (<30) umol/L Triglycerides 174 H (<150) mg/dL 05/10/17 05/10/17 05/10/17 Range/Units 07:49 07:49 11:25 WBC (3.8-10.6) k/uL RBC (4.30-5.90) m/uL Hgb (13.0-17.5) gm/dL Hct (39.0-53.0) % Plt Count (150-450) k/uL Lymphocytes # (1.0-4.8) k/uL Retic Count 2.7 H (0.5-2.0) % Chloride (98-107) mmol/L Carbon Dioxide (22-30) mmol/L Glucose (74-99) mg/dL POC Glucose (mg/dL) 158 H (75-99) mg/dL % Saturation 19.6 L (20-50) % Ferritin 15 L (18-464) ng/mL Ammonia (<30) umol/L Triglycerides (<150) mg/dL Assessment and Plan (1) Altered mental status Status: Resolved (2) Hepatic encephalopathy Status: Chronic (3) Portal vein thrombosis Status: Chronic (4) Thrombocytopenia Status: Suspected (5) Cirrhosis Status: Chronic Plan: The patient is back to his baseline and his altered mental status was most likely due to his elevated ammonia level. This created an acute metabolic encephalopathy. Strength neurology will continue to follow. An EEG has been done an barring any unforeseen abnormalities he would be cleared from a neurological standpoint. I have performed a history and physical on the above patient. I have reviewed the above note, and agree.
[2017-05-10 16:31] LABS: ANA w/Reflex to Titer NEGATIVE (NEGATIVE)
--- NOTE | 2017-05-10 16:59 | P.PN ---
Progress Note - Text DATE OF SERVICE: 05/10/2017 PRESENTING COMPLAINT: Acute confusion INTERVAL HISTORY: This is a patient that was admitted with acute confusion, hepatic encephalopathy. Today standing at the bedside present eating his breakfast , no complaints of any of the symptoms he had on arrival. REVIEW OF SYSTEMS: Done for constitutional ,cardiovascular, GI, pulmonary with relevant findings as above. CURRENT MEDICATIONS Lantus, Zestril, Protonix, lactulose. PHYSICAL EXAM: VITAL SIGNS: Temperature 97.0, pulse 63, respiratory rate 18, blood pressure 156 /92, oxygen saturation 96% on room air. GENERAL APPEARANCE: Standing at the bedside, not in distress. EYES: Pupils equal. Conjunctiva normal. NECK: JVD not raised. Mass not palpable. RESPIRATORY: Respiratory effort normal. Lungs diminished . CARDIOVASCULAR: First and second sounds normal. No edema. ABDOMEN: Soft. Liver and spleen not palpable. No tenderness. No mass palpable. PSYCHIATRY: Alert and oriented x3. Mood and affect normal. NEUROLOGICAL: Cranial nerves grossly intact. Power and sensation grossly intact , minor delay noted in responses from patient when asking questions to him. INVESTIGATIONS: White blood cell count 2.4, hemoglobin 11.6, platelet count 44, percent saturation 19.6, ferritin 15, ammonia 53. Computed tomography scan chest abdomen pelvis: Nonspecific mild/moderate ascending colitis., Massive thoracoabdominal varices throughout the abdomen, mediastinum, and left hilum. Cirrhosis with chronic portal vein thrombosis and splenomegaly, massive right direct inguinal hernia, with normal-appearing bowel loops and no bowel obstruction., Coronary calcification noted. Portal vein ultrasound: Positive for portal vein thrombosis. Echocardiogram: Sinus rhythm, EF of 60-65% Carotid Doppler: No significant stenosis. ASSESSMENT: 1. Acute Hepatic encephalopathy secondary to cirrhosis and alcoholic liver disease versus metabolic conditions. 2. Alcoholic cirrhosis with portal hypertension and possible portal vein thrombosis. 3. Cirrhosis secondary to varices, portal vein thrombus. 4. Diabetes mellitus type 2, chronically on insulin 5. Gastroesophageal reflux disease 6. Hyperlipidemia 7. Essential hypertension 8. Esophageal varices PLAN: GI nurse practitioner Laura Gutierrez had an extensive conversation with the patient is , regarding plan of care, testing, treatment and follow-up. Both patient and verbalized understanding and asked questions which were answered. Patient will be continued on lactulose which will be titrated for 2- 3 bowel movements each day. Hematology oncology has also been consulted will await their input. Zack'll continue to follow closely. LITERATURE TEACHER statement: Patient was seen and examined by nurse practitioner Cris Linda in all elements of the case discussed with attending is Dr. Nowak
[2017-05-10 17:05] LABS: Glucose,Whole Blood 190 mg/dL (75-99)
[2017-05-10 21:54] LABS: Glucose,Whole Blood 118 mg/dL (75-99)
[2017-05-10] MEDS: INSULIN GLARGINE 100 UNIT/ML 10 ML VIAL SQ SCH (22:18)
--- NOTE | 2017-05-10 22:55 | PN ---
DATE OF SERVICE: 05/10/2017 Attending note: This patient was seen and examined by me earlier today. Reviewed the note of my nurse practitioner, Ms. Linda, discussed and reviewed additional findings below. Patient admitted with hepatic encephalopathy, started on lactulose. Patient also seems to have portal vein thrombosis, doing better. Answering questions. On examination speaks a bit slowly but rather alert, oriented x3. When asked, the patient knows that he is at the hospital, knows the year, month. Chest abdomen and pelvis CT shows portal vein thrombosis ( ) extending into the superior mesenteric vein. Gallstones noted. Splenomegaly noted. ASSESSMENT: 1. Hepatic encephalopathy from cirrhosis, improving. 2. Cirrhosis causing portal hypertension, leading to extensive varices and splenomegaly. 3. Massive ( ) inguinal hernia. 4. Gallstone asymptomatic. PLAN: At this point, continue with GI work-up. Patient did have a 2-D echocardiogram that shows preserved LV function. Overall prognosis is guarded. Follow.
[2017-05-11 07:34] LABS: Glucose,Whole Blood 142 mg/dL (75-99)
[2017-05-11 07:39] LABS: Basophils % (A) 1 %; CH 30.7; CHCM 33.3; Eosinophils # (A) 0.1 k/uL (0-0.7); Eosinophils % (A) 5 %; HCT 35.3 % (39.0-53.0); HDW 2.95; HGB 11.9 gm/dL (13.0-17.5); Luc # (Auto) 0.08; Luc % (Auto) 3; Lymphocytes # (A) 0.3 k/uL (1.0-4.8); Lymphocytes % (A) 13 %; MCH 31.1 pg (25.0-35.0); MCHC 33.6 g/dL (31.0-37.0); MCV 92.6 fL (80.0-100.0); Mean Platelet Volume 8.7; Monocytes # (A) 0.2 k/uL (0-1.0); Monocytes % (A) 9 %; Neutrophils # (A) 1.6 k/uL (1.3-7.7); Neutrophils % (A) 69 %; RBC 3.81 m/uL (4.30-5.90); RDW 15.1 % (11.5-15.5); WBC 2.3 k/uL (3.8-10.6); WBC (Perox) 2.36
[2017-05-11 07:49] LABS: Anion Gap 7 mmol/L; Blood Urea Nitrogen 14 mg/dL (9-20); Calcium 8.6 mg/dL (8.4-10.2); Carbon Dioxide 24 mmol/L (22-30); Chloride 108 mmol/L (98-107); Glucose 125 mg/dL (74-99); Non-African American GFR(MDRD) >60 (>60 ml/min/1.73 sqM); Potassium 4.2 mmol/L (3.5-5.1); Sodium 139 mmol/L (137-145)
[2017-05-11] MEDS: LISINOPRIL 20 MG TAB PO SCH (08:12)
[2017-05-11] MEDS: PANTOPRAZOLE 40 MG TABLET PO SCH (08:12)
[2017-05-11] MEDS: INSULIN LISPRO (humaLOG) 300 UNIT/3 ML VIAL SQ SCH ×2 (08:15→13:45)
--- NOTE | 2017-05-11 08:37 | EEG ---
DATE OF SERVICE: 05/10/2017 REASON FOR TESTING: Altered mental status. AGE: 66Y DESCRIPTION OF THE PROCEDURE: This EEG was performed using a 21-channel digital electroencephalograph, following the international 10 - 20 system. DESCRIPTION OF THE RECORDING: From the beginning of the tracing, and with the patient's eyes closed, the background rhythm was mostly consisting of 6 to 7 Hz theta frequency in the posterior occipital leads. No obvious asymmetry is seen. Photic stimulation was performed with no driving response seen. No pathological waves were elicited. Frequent movement artifacts are seen. The patient remains awake throughout the tracing. No epileptiform discharges were seen. Hyperventilation was not performed. His EKG lead showed a regular rate and rhythm. INTERPRETATION: This awake EEG is abnormal due to the presence of generalized slowing of the background rhythm, mostly in the theta range. This is consistent with mild encephalopathy. No epileptiform discharges were seen. The absence of epileptiform discharges does not rule out the diagnosis of epilepsy, therefore, clinical correlation is recommended.
[2017-05-11] MEDS ORDERED: LACTULOSE 20 GM/30 ML CUP PO SCH ×2 (09:00→13:00)
[2017-05-11] MEDS ORDERED: LACTULOSE 20 GM/30 ML CUP PO ONE ×2 (10:15→11:30)
--- NOTE | 2017-05-11 11:06 | P.PN ---
Subjective Principal diagnosis: Cirrhosis hepatic encephalopathy 46-year-old male with a history of alcohol liver disease cirrhosis remote EtOH abuse presents with acute mental status and elevated ammonia levels consistent with hepatic encephalopathy. Ammonia level increased to 140 today. He is alert. Afebrile. Denies abdominal pain. Computed tomography scan chest abdomen and pelvis reported massive abdominal paraesophageal ascites as well as portal vein thrombosis. Objective - Vital Signs Vital signs: Vital Signs Temp 98.3 F 05/11/17 08:00 Pulse 71 05/11/17 08:00 Resp 20 05/11/17 08:00 BP 141/82 05/11/17 08:00 Pulse Ox 95 05/11/17 08:00 Intake & Output 05/10/17 05/11/17 05/11/17 18:59 06:59 18:59 Intake Total 240 Balance 240 Weight 107.5 kg Intake: Oral 240 Other: # Voids 2 2 - Exam General appearance: The patient is alert, oriented, in no acute distress. Speech is somewhat slow but coherent and clear. HET: Head is normocephalic and atraumatic. Pupils are equal and reactive. Oropharynx is clear without lesions. Facial telangiectasias. Neck: Supple without lymphadenopathy. Trachea midline. Heart: S1 S2. Regular rate and rhythm. Lungs: No crackles or wheezes are heard. Abdomen: Soft, nontender, reducible umbilical hernia, nondistended with bowel sounds. No appreciable ascites. No peritoneal signs. No palpable organomegaly or masses. Extremities: Normal skin color and turgor. No cyanosis, rash, ulceration, clubbing, or edema. Radial and pedal pulses are 2/4 bilaterally. Neurological: No focal deficits. Strength and sensation are grossly intact. - Labs CBC & Chem 7: 05/11/17 07:21 05/11/17 07:21 Labs: Abnormal Lab Results - Last 24 Hours (Table) 05/10/17 05/10/17 05/10/17 Range/Units 07:49 11:25 17:04 WBC (3.8-10.6) k/uL RBC (4.30-5.90) m/uL Hgb (13.0-17.5) gm/dL Hct (39.0-53.0) % Plt Count (150-450) k/uL Lymphocytes # (1.0-4.8) k/uL Chloride (98-107) mmol/L Glucose (74-99) mg/dL POC Glucose (mg/dL) 158 H 190 H (75-99) mg/dL % Saturation 19.6 L (20-50) % Ferritin 15 L (18-464) ng/mL Ammonia (<30) umol/L 05/10/17 05/11/17 05/11/17 Range/Units 21:49 07:21 07:21 WBC 2.3 L (3.8-10.6) k/uL RBC 3.81 L (4.30-5.90) m/uL Hgb 11.9 L (13.0-17.5) gm/dL Hct 35.3 L (39.0-53.0) % Plt Count 42 L* (150-450) k/uL Lymphocytes # 0.3 L (1.0-4.8) k/uL Chloride (98-107) mmol/L Glucose (74-99) mg/dL POC Glucose (mg/dL) 118 H (75-99) mg/dL % Saturation (20-50) % Ferritin (18-464) ng/mL Ammonia 140 H (<30) umol/L 05/11/17 05/11/17 Range/Units 07:21 07:30 WBC (3.8-10.6) k/uL RBC (4.30-5.90) m/uL Hgb (13.0-17.5) gm/dL Hct (39.0-53.0) % Plt Count (150-450) k/uL Lymphocytes # (1.0-4.8) k/uL Chloride 108 H (98-107) mmol/L Glucose 125 H (74-99) mg/dL POC Glucose (mg/dL) 142 H (75-99) mg/dL % Saturation (20-50) % Ferritin (18-464) ng/mL Ammonia (<30) umol/L Assessment and Plan (1) Hepatic encephalopathy Narrative/Plan: Worsened ammonia level today Status: Chronic (2) Altered mental status Status: Resolved (3) Portal vein thrombosis Status: Chronic (4) H/O ETOH abuse Status: Acute (5) Alcoholic liver disease Status: Chronic (6) Cirrhosis Status: Chronic (7) Portal hypertension Status: Chronic (8) Liver lesion Narrative/Plan: Suspect cystic; CEA AFP marker unremarkable. Status: Acute (9) Thrombocytopenia Status: Suspected Plan: 1. Lactulose 30 g every hour 2 followed by 20 g 4 times a day. Titrate 3-4 bowel movements daily. 2. Repeat ammonia level at 1700 and in a.m. 3. Hold discharge until ammonia level shows improvement. 4. CT findings were discussed by Dr. Lawson with patient. 5. Possible discharge tomorrow. Assessment and plan a care discussed with Dr. Lawson.
[2017-05-11 11:44] LABS: Glucose,Whole Blood 145 mg/dL (75-99)
[2017-05-11 12:22] LABS: Free Kappa Lt Chain Qnt, Serum 2.55 mg/dL (0.33 - 1.94); Kappa/Lambda Light Chain Ratio 0.87 (0.26 - 1.65)
[2017-05-11 16:09] VITALS: BP 143/83; PULSE 68; RESP 20; TEMP 97.1
[2017-05-11 17:15] LABS: Glucose,Whole Blood 132 mg/dL (75-99)
--- NOTE | 2017-05-12 00:33 | P.CONS ---
History of Present Illness - Reason for Consult Consult date: 05/11/17 Pancytopenia, possible thoracic and upper abdominal masses - History of Present Illness The patient is 66-year-old gentleman with multiple medical problems. He has a known history of alcoholic cirrhosis and portal hypertension. He was admitted with the somewhat acute onset of "feeling woozy", generalized weakness , slurring of speech and confusion. Symptoms improved significantly post admission, within 24 hours. Differential diagnoses included TIA, versus hepatic encephalopathy. The patient had a computed tomography scan of the brain done on admission, we did not show any significant findings other than mild age-related atrophic changes. Chest x-ray indicated the possibility of a thoracic aortic aneurysm due to which are thoracic aortic CT was performed. This showed evidence of hepatic parenchymal changes suggestive of cirrhosis, would also raise the possibility of lower thoracic and upper abdominal masses. There also appeared to be portal vein thrombosis. Her admission the patient's hemoglobin was in the 11-12 range, with platelets in the 40,000 range and WBC in the 2-3000 range. Consult was therefore placed for further evaluation and recommendations. The patient's indicated that he is platelets as well as white cells have been chronically low but she was not aware of exact values of the past. The patient is actually a resident of [facility], and follows with the his primary care doctor there. Review of Systems Constitutional: Reports weakness Eyes: right tunnel vision/blind spots, denies blurred vision, denies pain Ears: deny: decreased hearing, ear discharge, earache, tinnitus Ears, nose, mouth and throat: Denies headache, Denies sore throat Cardiovascular: Denies chest pain, Denies shortness of breath Respiratory: Denies cough Gastrointestinal: Reports as per HPI (Known cirrhosis), Denies abdominal pain, Denies diarrhea, Denies nausea, Denies vomiting Genitourinary: Reports as per HPI (No specific complaint) Integumentary: Denies pruritus, Denies rash Neurological: Reports as per HPI, Reports change in mentation, Reports change in speech, Reports confusion, Reports weakness Psychiatric: Denies anxiety, Denies depression Endocrine: Denies fatigue, Denies weight change Hematologic/Lymphatic: Reports as per HPI Past Medical History Past Medical History: Diabetes Mellitus, GERD/Reflux, Hyperlipidemia, Hypertension Additional Past Medical History / Comment(s): "beginnings of cataracts,past esophageal varices(past heavy etoh use,quit 2006- stated pt ahs some liver damage from the etoh),lower abd hernia,"hands shake", "low rbc" History of Any Multi-Drug Resistant Organisms: None Reported Past Surgical History: No Surgical Hx Reported Additional Past Surgical History / Comment(s): past procedure for esophageal varicies Additional Past Anesthesia/Blood Transfusion Reaction / Comm: blood transfusion- no reation, clausterphobic. Past Psychological History: No Psychological Hx Reported Additional Psychological History / Comment(s): pt lives with his in 3rd floor apt.has elevator. no pets. pt is independant when up. no outside services , no medical equipment. Smoking Status: Current every day smoker Past Alcohol Use History: Heavy Additional Past Alcohol Use History / Comment(s): started smoking in his early 20's (not sure exactly) only smokes cigars-1 per day. past heavy etoh use-quit 2006 Past Drug Use History: None Reported - Past Family History Mother Family Medical History: CVA/TIA, Hypertension, Myocardial Infarction (DE) Father Family Medical History: Dementia Medications and Allergies Home Medications Medication Instructions Recorded Confirmed Type Insulin Aspart [NovoLOG] 15 unit SQ AC-TID 05/09/17 05/09/17 History Insulin Glargine,Hum.rec.anlog 30 unit SQ HS 05/09/17 05/09/17 History [Lantus Solostar] Lisinopril 40 mg PO DAILY 05/09/17 05/09/17 History Omeprazole [PriLOSEC] 20 mg PO DAILY 05/09/17 05/09/17 History Allergies Allergy/AdvReac Type Severity Reaction Status Date / Time No Known Allergies Allergy Verified 05/09/17 11:38 Physical Exam Vitals: Vital Signs Temp Pulse Resp BP Pulse Ox 05/11/17 16:00 97.1 F L 68 20 143/83 97 05/11/17 12:00 97.9 F 61 18 145/83 96 05/11/17 08:00 98.3 F 71 20 141/82 95 05/11/17 04:00 63 16 05/11/17 00:00 65 16 Intake and Output 05/11/17 05/11/17 05/12/17 14:59 22:59 06:59 Other: # Voids 2 - Constitutional General appearance: no acute distress - EENT Eyes: EOMI, PERRLA ENT: hearing grossly normal, normal oropharynx - Neck Neck: no lymphadenopathy Thyroid: bilateral: normal size - Respiratory Respiratory: bilateral: CTA - Cardiovascular Rhythm: regular Heart sounds: normal: S1, S2 - Gastrointestinal General gastrointestinal: normal bowel sounds, soft - Integumentary Integumentary: normal - Neurologic Neurologic: CNII-XII intact - Musculoskeletal Musculoskeletal: strength equal bilaterally - Psychiatric Psychiatric: A&O x's 3, appropriate affect Results CBC & Chem 7: 05/11/17 07:21 05/11/17 07:21 Labs: Abnormal Lab Results - Last 24 Hours (Table) 05/09/17 05/11/17 05/11/17 Range/Units 11:25 07:21 07:21 WBC 2.3 L (3.8-10.6) k/uL RBC 3.81 L (4.30-5.90) m/uL Hgb 11.9 L (13.0-17.5) gm/dL Hct 35.3 L (39.0-53.0) % Plt Count 42 L* (150-450) k/uL Lymphocytes # 0.3 L (1.0-4.8) k/uL Chloride (98-107) mmol/L Glucose (74-99) mg/dL POC Glucose (mg/dL) (75-99) mg/dL Ammonia 140 H (<30) umol/L Free [place] LC, Quant 2.55 H (0.33 - 1.94) mg/dL Free Lambda LC, Quant 2.92 H (0.57 - 2.63) mg/dL 05/11/17 05/11/17 05/11/17 Range/Units 07:21 07:30 11:42 WBC (3.8-10.6) k/uL RBC (4.30-5.90) m/uL Hgb (13.0-17.5) gm/dL Hct (39.0-53.0) % Plt Count (150-450) k/uL Lymphocytes # (1.0-4.8) k/uL Chloride 108 H (98-107) mmol/L Glucose 125 H (74-99) mg/dL POC Glucose (mg/dL) 142 H 145 H (75-99) mg/dL Ammonia (<30) umol/L Free [place] LC, Quant (0.33 - 1.94) mg/dL Free Lambda LC, Quant (0.57 - 2.63) mg/dL 05/11/17 05/11/17 Range/Units 16:50 17:12 WBC (3.8-10.6) k/uL RBC (4.30-5.90) m/uL Hgb (13.0-17.5) gm/dL Hct (39.0-53.0) % Plt Count (150-450) k/uL Lymphocytes # (1.0-4.8) k/uL Chloride (98-107) mmol/L Glucose (74-99) mg/dL POC Glucose (mg/dL) 132 H (75-99) mg/dL Ammonia 113 H (<30) umol/L Free [place] LC, Quant (0.33 - 1.94) mg/dL Free Lambda LC, Quant (0.57 - 2.63) mg/dL Chest x-ray: report reviewed CT scan - abdomen: report reviewed CT scan - chest: report reviewed CT Scan - head: report reviewed CT scan - pelvis: report reviewed US - abdomen: report reviewed Assessment and Plan (1) Pancytopenia Narrative/Plan: This appears to be directly related to his liver disease. The patient has a known history of low platelets and white blood cells. He has diminished platelet production due to liver disease, and prior heavy alcohol use. 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 Alcohol-related marrow effect and splenic sequestration are the most likely reasons for his low white cells also. The counts are in a safe range. If the patient was felt to have a TIA, and antiplatelet therapy was recommended, then there could be an issue as typically for that the platelet Count of greater than 50,000 is desirable. However, based on risk benefit, aspirin can be used even with platelet counts in the 30-50,000 range. However, in this patient , it is felt that his symptoms were due to hepatic encephalopathy, and therefore aspirin is not indicated anyway. Labs were ordered to rule out other causes, and are negative so far. The patient and his were advised, that there is no specific treatment for cytopenias associated with the liver disease and portal hypertension. As long as counts are in a safe range, no specific intervention is required. As the patient would require a surgery or invasive procedure with platelet counts less than 50,000, platelets could be given at the time. Labs to indicate evidence of iron deficiency. Hemoglobin is fairly close to normal. The patient likely has some degree of chronic low-volume blood loss because of varices, and/or decreased iron absorption due to portal gastropathy and GI mucosal edema. Given the mild degree of anemia, oral iron supplementation as initial intervention is appropriate. The patient and his stated that they will start oral iron supplementation on a discharge, and follow-up with his PCP in [facility]. Status: Acute (2) Intra-abdominal varices Narrative/Plan: The initial computed tomography scan of the thoracic aorta, and raise the possibility of lower thoracic and upper abdominal masses. Case was extensively discussed with the GI service, and computed tomography scan of the chest abdomen and pelvis ordered. Alpha-fetoprotein level was also ordered. CT CAP with contrast confirmed however that there were no masses or adenopathy. The findings of the computed tomography scan of the chest were due to massive mediastinal, lower thoracic and lower abdominal varices due to his portal hypertension. AFP level was also normal. Therefore, there is no evidence of malignancy. Status: Chronic (3) Portal vein thrombosis Narrative/Plan: This is not an uncommon finding in patients with cirrhosis. Based on lack of symptoms, as well as extensive varices, this most likely is chronic. For incidentally found portal vein thrombosis that is chronic, antibiotic regulation is not indicated. Status: Chronic
--- NOTE | 2017-05-12 07:28 | DS ---
DATE OF ADMISSION: 05/09/2017 DATE OF DISCHARGE: 05/11/2017 FINAL DIAGNOSES: 1. Acute hepatic encephalopathy. 2. Cirrhosis causing portal hypertension, leading to extensive varices and splenomegaly. 3. Massive right inguinal hernia. 4. Gallstones, asymptomatic 5. Essential hypertension. 6. Hyperlipidemia. 7. Gastroesophageal reflux disease. 8. Diabetes mellitus type 2, chronically on insulin. 9. Normocytic anemia secondary to cirrhosis. 10. Thrombocytopenia due to cirrhosis. 11. Chronic portal vein thrombosis. HOSPITAL COURSE: This patient presented with acute confusion, felt to be encephalopathy, responded well to lactulose. Patient has alcoholic cirrhosis with portal hypertension and splenomegaly. Patient was seen by Dr. Grande from Oncology, ( ) with the patient. He did not think there is any underlying malignancy. Patient does have underlying portal vein thrombosis. Patient doing much better at the time of discharge. Care was discussed with the patient and in detail. CONSULTATIONS: 1. Dr. Murphy from Neurology. 2. Dr. Lawson from GI. Additionally, patient had an EEG that showed encephalopathy. Patient also had a CT chest, abdomen and pelvis, portal vein ultrasound, a 2D echo that was unremarkable. CT scan of the brain did show some chronic changes. Patient and educated about using the lactulose. DISCHARGE MEDICATIONS: 1. NovoLog 15 units subQ a.c. t.i.d. 2. Lantus Solostar 30 units subQ q.h.s. 3. Lisinopril 40 mg a day. 4. Prilosec 20 mg a day. 5. Lactulose 20 gm p.o. q.i.d. to titrate 3 to 4 BMs a day. Patient to follow with his family doctor in 2 or 3 days and with the GI specialist in a week. DC planning more than 35 minutes. On examination, patient able to answer questions. ABDOMEN: Soft, nontender. PSYCH: Alert and oriented x3.
== END 2017-05-11 17:50 | disposition home or self-care (01) | DRG 432 ==
LOC: EC 10:48 → 6SEL 14:15 → 5ONC 05-10 19:22
PROVIDERS: ADMIT Hospitalist; ATTEND Hospitalist
DX: K70.40 Alcoholic hepatic failure without coma (principal); I81 Portal vein thrombosis; K70.31 Alcoholic cirrhosis of liver with ascites; G93.41 Metabolic encephalopathy; D61.818 Other pancytopenia; K76.6 Portal hypertension; I85.10 Secondary esophageal varices without bleeding; I10 Essential (primary) hypertension; D69.59 Other secondary thrombocytopenia; R16.1 Splenomegaly, not elsewhere classified; D63.8 Anemia in other chronic diseases classified elsewhere; E11.9 Type 2 diabetes mellitus without complications; E78.5 Hyperlipidemia, unspecified; K21.9 Gastro-esophageal reflux disease without esophagitis; I86.8 Varicose veins of other specified sites; F10.20 Alcohol dependence, uncomplicated; K44.9 Diaphragmatic hernia without obstruction or gangrene; F17.290 Nicotine dependence, other tobacco product, uncomplicated; R53.1 Weakness; H53.481 Generalized contraction of visual field, right eye; R47.81 Slurred speech; I67.9 Cerebrovascular disease, unspecified; R29.709 NIHSS score 9; E66.9 Obesity, unspecified; K40.90 Unilateral inguinal hernia, without obstruction or gangrene, not specified as recurrent; E61.1 Iron deficiency; H26.9 Unspecified cataract; R47.1 Dysarthria and anarthria; K80.20 Calculus of gallbladder without cholecystitis without obstruction; Z82.3 Family history of stroke; Z82.49 Family history of ischemic heart disease and other diseases of the circulatory system; Z79.899 Other long term (current) drug therapy; Z79.4 Long term (current) use of insulin; Z68.32 Body mass index [BMI] 32.0-32.9, adult; Z81.8 Family history of other mental and behavioral disorders; Y90.0 Blood alcohol level of less than 20 mg/100 ml
CPT/HCPCS: 36415; 70450; 71020; 71260; 71275; 74177; 75635; 80048; 80053; 80061; 80074; 80320; 82103; 82105; 82140; 82378; 82390; 82550; 82553; 82728; 83516; 83540; 83550; 83883; 84165; 84484; 85025; 85045; 85610; 85730; 86038; 86334; 86431; 93005; 93306; 93880; 93976; 95819; 96360; 96361; 99285